=== PATIENT | female | born 1960 | race Caucasian/White ===

== ENCOUNTER 2020-03-22 18:55 | Observation (INO) | payer OTHER, SELFPAY ==
[2020-03-22 19:01] VITALS: BP 174/86; PULSE 75; RESP 18; TEMP 36.6; O2SAT 99; BMI 27.4
--- NOTE | 2020-03-22 19:04 | ECG_ITS ---
Measurements Intervals [place] Rate: 68 P: 78 RI: 196 QRS: 37 QRSD: 104 T: 47 QT: 393 QTc: 418 SINUS RHYTHM WITH SINUS ARRHYTHMIA No previous ECG available for comparison Electronically Signed On 03-23-2020 14:17:13 CDT by Kristyn Burnette M.D. [id number]
--- NOTE | 2020-03-22 19:04 | XR_ITS ---
WS: [id number] XR chest 1V portable [id number] REASON FOR EXAM: cough FINDINGS: A prominent hiatal hernia is seen. The heart is not grossly enlarged. There is arteriosclerotic changes in the arch of the aorta. There is no active pneumonia, pleural effusion, pulmonary edema, The hilum is and apices normal. No osseous abnormalities. Scattered calcified granulomas are noted. XR/XR chest 1V portable [id number] IMPRESSION: Hiatal hernia Granulomatous changes
[2020-03-22] MEDS: aspirin 325 mg Tablet PO (19:16)
[2020-03-22 19:25] LABS: Basophils % 0.4 %; Eosinophils # 0.2 10^3/uL (0.0-0.8); Eosinophils % 3.5 %; Hematocrit 22.4 % (37.0-47.0); Lymphocytes # 1.3 10^3/uL (0.8-4.8); Lymphocytes % 24.9 %; Mean Corpuscular HGB Conc 28.1 g/dL (30.0-36.0); Mean Corpuscular Hemoglobin 22.3 pg (28.0-34.0); Mean Corpuscular Volume 79.2 fL (81-99); Mean Platelet Volume 9.2 fL (7.4-10.4); Monocytes # 0.4 10^3/uL (0.2-0.9); Monocytes % 7.2 %; Neutrophils # 3.4 10^3/uL (1.8-7.7); Neutrophils % 63.6 %; Nucleated Red Blood Cells % 0 %; Platelet Count 307 10^3/cmm (130-400); Red Blood Count 2.83 10^6/uL (4.1-5.3); Red Cell Distribution Width 14.1 % (12.1-15.1); White Blood Count 5.4 10^3/uL (4.0-10.0)
[2020-03-22] MEDS: sodium chloride 0.9% 1,000 ML 100 ML IV (19:25)
[2020-03-22] MEDS: nitroglycerin 0.4 mg sublingual Tablet SUBLINGUAL (19:25)
[2020-03-22 19:29] LABS: Hemoglobin 6.3 g/dL (11.5-15.3)
[2020-03-22 19:34] LABS: INR 0.92 (0.8-1.2)
[2020-03-22 19:42] LABS: Troponin(5th) Baseline 7 ng/mL (0-10)
[2020-03-22 19:50] LABS: Alanine Aminotransferase 15 U/L (0-33); Albumin Level 4.6 g/dL (3.5-5.2); Alkaline Phosphatase 74 IU/L (35-105); Aspartate Amino Transferase 18 U/L (0-32); Blood Urea Nitrogen 18 mg/dL (8-23); Calcium 9.7 mg/dL (8.5-10.5); Carbon Dioxide 27 mmol/L (22-29); Chloride 100 mmol/L (98-107); Globulin 2.6 g/dL (1.3-4.6); Glomerular Filtration Rate 50.5 mL/min (90-130); Glucose 108 mg/dL (65-115); Lipase 35 U/L (13-60); Magnesium 2.3 mg/dL (1.7-2.3); NT Pro B Type Natriuretic Pept 324 pg/mL (0-125); Osmolality Calculated 283 mOsm/kg (285-295); Sodium 138 mmol/L (136-145); Total Bilirubin 0.2 mg/dL (0.15-1.2); Total Protein 7.2 g/dL (6.6-8.7)
--- NOTE | 2020-03-22 19:52 | W.ED.CHESTPA ---
HPI - Chest Pain General: Chief Complaint: Chest Pain Stated Complaint: CP Time Seen by Provider: 03/22/20 19:03 History of Present Illness: HPI narrative: Jaimie is a nice 59-year-old female Associated symptoms: Reports dyspnea; Deny abdominal pain, diaphoresis, fever(s), nausea, palpitations, syncope or vomiting Review of Systems General: Reports: other (negative unless marked) Const: Denies: fever, chills, body aches, fatigue, malaise or diaphoresis Eyes: Denies: change in vision or blurry vision ENMT: Denies: throat pain, painful swallowing, hoarseness, ear pain, ear discharge, Change in hearing or nasal discharge Card: Reports: chest pain; Denies: palpitations, irregular heart rhythm, syncope, pre-syncope, shortness of breath on exertion or shortness of breath when lying down Resp: Reports: shortness of breath; Denies: productive cough, non-productive cough, wheezing, coughing up blood or chest congestion GI: Denies: abdominal pain, nausea, vomiting, vomiting blood, coffee grounds in vomit, diarrhea, constipation, cramping, blood in stool or black tarry stool : Denies: flank pain, painful urination, urinary frequency, urinary urgency, decreased urine ouput, urinary incontinence or blood in urine Musc: Denies: neck pain, back pain, extremity pain, extremity swelling, joint pain, joint swelling, joint warmth or joint stiffness Skin/Breast: Denies: rash, skin tenderness or yellow skin Neuro: Denies: headache, numbness in extremities, weakness in extremities, changes in sensation, lack of coordination, difficulty walking, dizziness, vertigo or confusion Endo: Denies: excessive thirst, tired all the time, cold intolerance, excessive sweating, flushing or hot flashes Joaquín/Lymph: Denies: easy bruising, easy bleeding, petechiae or enlarged lymph nodes All/Imm: Denies: hives, throat swelling, tongue swelling, facial swelling or acute wheezing PFS ED PFSH: Medical History Abnormal stress test Done in 2009 small area of persistent decreased tracer uptake in apical inferior wall region surgical scarring versus attenuation artifact EF 76% no wall motion abnormality GERD (gastroesophageal reflux disease) Hypertension Right ovarian cyst Surgical History History of salpingo-oophorectomy Right-sided Social History Smoking and tobacco status: never smoked Physical Exam Const: COMMON NORMALS: no apparent distress, oriented x3, no limitations, healthy appearing and well nourished EXAM LIMITATIONS: no altered mental status GENERAL APPEARANCE: cooperative, well kempt and well developed ORIENTATION/CONSCIOUSNESS: Yes awake HENMT: COMMON NORMALS: normocephalic, head/scalp atraumatic, hearing grossly normal bilaterally, external ears normal, EAC's normal, external nose normal and moist oral mucous membranes HEAD & SCALP: normal to inspection, normocephalic and atraumatic FACE & SINUS: normal facial exam and face symmetric NOSE: external nose normal and nares normal EXTERNAL EAR: Yes external ears normal EXTERNAL AUDITORY CANAL: EAC's normal MOUTH: oral and palatal mucosa normal and tongue normal Eye: COMMON NORMALS: PERRL, EOMs intact bilaterally, conjunctivae normal and no scleral icterus GENERAL EYE: normal appearance of both eyes and normal light reflex CONJUNCTIVA: Yes conjunctivae normal SCLERA: sclerae normal CORNEA: Yes corneas normal PUPIL: Yes PERRL DIRECT OPHTHALMOSCOPY: Yes normal light reflex Neck/C-Spine: COMMON NORMALS: full ROM, no lymphadenopathy, supple, no meningeal signs and no JVD GENERAL: Yes normal visual inspection and Yes trachea midline CERVICAL SPINE: Yes cervical ROM normal Chest: COMMONS NORMALS: inspection of chest normal and palpation of chest normal Resp: COMMON NORMALS: normal respiratory effort, no retractions, no use of accessory muscles and clear to auscultation bilaterally EFFORT & INSPECTION: Yes able to speak in complete sentences AUSCULTATION: clear to auscultation bilaterally Cardio: COMMON NORMALS: no JVD, regular rate, regular rhythm, S1 normal heart sound, S2 normal heart sound, no gallops, no clicks and no rub JUGULAR VENOUS DISTENTION: no JVD RATE: regular rate RHYTHM: regular rhythm HEART SOUNDS: S1 normal, S2 normal and murmur systolic GI: COMMON NORMALS: soft to palpation, non-tender, no hepatosplenomegaly and no masses INSPECTION: Yes normal to inspection PALPATION: Yes soft and Yes no hepatosplenomegaly : COMMON NORMALS: Yes no CVA tenderness BLADDER/KIDNEY EXAM: Yes no CVA tenderness Back/Pelvis: COMMON NORMALS: no CVA tenderness, thoracic and lumbar spine normal to inspection, no thoracic nor lumbar tenderness and thoraco-lumbar ROM normal Extremity: COMMON NORMALS: normal to inspection, full ROM, normal capillary refill, no joint enlargement, no clubbing, cyanosis or edema and no calf tenderness Neuro: COMMON NORMALS: oriented x3, CN's II-XII intact bilaterally, moves all extremities, no focal motor deficits and no sensory deficits noted MENINGEAL SIGNS: Yes no meningeal signs Psych: COMMON NORMALS: mental status grossly normal, thought process normal, cooperative, affect normal, speech normal and activity/motor behavior normal APPEARANCE: Yes well kempt SPEECH: Yes normal speech THOUGHT PROCESS: normal thought process Skin: COMMON NORMALS: no rashes or lesions noted, skin turgor normal, no jaundice, no petechiae and no mottling GENERAL SKIN EXAM: no rashes or lesions noted and turgor normal Course Vital Signs: Vital signs: Vital Signs Temperature 97.8 F 03/22/20 19: Pulse Rate 75 03/22/20 19: Respiratory Rate 18 03/22/20 19:01 Blood Pressure 174/86 03/22/20 19:01 Pulse Oximetry 99 03/22/20 19:01 MDM - Chest Pain MDM Narrative: Medical decision making narrative: Patient comes in with chest pain and shortness of breath with exertion. Symptoms could be related to her anemia. She is guaiac positive here and admits to taking large amount of Aleve for her arthritis pain. The case was reviewed with Dr. Haskins and he agrees to admission for transfusion and further work-up of her chest pain. Lab Data: Labs: Lab Results 03/22/20 03/22/20 03/22/20 Range/Units 19:19 19:19 19:19 WBC 5.4 (4.0-10.0) 10^3/ uL RBC 2.83 L (4.1-5.3) 10^6/u L Hgb 6.3 L* (11.5-15.3) g/dL Hct 22.4 L (37.0-47.0) % MCV 79.2 L (81-99) fL MCH 22.3 L (28.0-34.0) pg MCHC 28.1 L (30.0-36.0) g/dL RDW 14.1 (12.1-15.1) % Plt Count 307 (130-400) 10^3/c mm MPV 9.2 (7.4-10.4) fL Neut % (Auto) 63.6 % Lymph % (Auto) 24.9 % Taliaferro % (Auto) 7.2 % Eos % (Auto) 3.5 % Baso % (Auto) 0.4 % Neut # (Auto) 3.4 (1.8-7.7) 10^3/u L Lymph # (Auto) 1.3 (0.8-4.8) 10^3/u L Tal[place]ferro # (Auto) 0.4 (0.2-0.9) 10^3/u L Eos # (Auto) 0.2 (0.0-0.8) 10^3/u L Baso # (Auto) 0.0 (0.0-0.1) 10^3/u L Nucleated RBC % (a uto) 0 % Nucleated RBCs # 0.0 /100WBC PT 12.70 (10.5-13.3) SECO NDS INR 0.92 (0.8-1.2) Sodium 138 (136-145) mmol/L Potassium 4.0 (3.5-5.1) mmol/L Chloride 100 (98-107) mmol/L Carbon Dioxide 27 (22-29) mmol/L Anion Gap 15.0 (5-19) BUN 18 (8-23) mg/dL Creatinine 1.1 H (0.5-0.9) mg/dL GFR Calculation 50.5 L (90-130) mL/min Glucose 108 (65-115) mg/dL Calculated Osmolal ity 283 L (285-295) mOsm/k g Calcium 9.7 (8.5-10.5) mg/dL Magnesium 2.3 (1.7-2.3) mg/dL Total Bilirubin 0.2 (0.15-1.2) mg/dL AST 18 (0-32) U/L ALT 15 (0-33) U/L Alkaline Phosphata se 74 (35-105) IU/L Troponin T Baselin e (0-10) ng/mL NT-Pro-B Natriuret Pep 324 H (0-125) pg/mL Total Protein 7.2 (6.6-8.7) g/dL Albumin 4.6 (3.5-5.2) g/dL Globulin 2.6 (1.3-4.6) g/dL Lipase 35 (13-60) U/L /05/06 Range/Units 19:19 WBC (4.0-10.0) 10^3/ uL RBC (4.1-5.3) 10^6/u L Hgb (11.5-15.3) g/dL Hct (37.0-47.0) % MCV (81-99) fL MCH (28.0-34.0) pg MCHC (30.0-36.0) g/dL RDW (12.1-15.1) % Plt Count (130-400) 10^3/c mm MPV (7.4-10.4) fL Neut % (Auto) % Lymph % (Auto) % Taliaferro % (Auto) % Eos % (Auto) % Baso % (Auto) % Neut # (Auto) (1.8-7.7) 10^3/u L Lymph # (Auto) (0.8-4.8) 10^3/u L Taliaferro # (Auto) (0.2-0.9) 10^3/u L Eos # (Auto) (0.0-0.8) 10^3/u L Baso # (Auto) (0.0-0.1) 10^3/u L Nucleated RBC % (a uto) % Nucleated RBCs # /100WBC PT (10.5-13.3) SECO NDS INR (0.8-1.2) Sodium (136-145) mmol/L Potassium (3.5-5.1) mmol/L Chloride (98-107) mmol/L Carbon Dioxide (22-29) mmol/L Anion Gap (5-19) BUN (8-23) mg/dL Creatinine (0.5-0.9) mg/dL GFR Calculation (90-130) mL/min Glucose (65-115) mg/dL Calculated Osmolal ity (285-295) mOsm/k g Calcium (8.5-10.5) mg/dL Magnesium (1.7-2.3) mg/dL Total Bilirubin (0.15-1.2) mg/dL AST (0-32) U/L ALT (0-33) U/L Alkaline Phosphata se (35-105) IU/L Troponin T Baselin e 7 (0-10) ng/mL NT-Pro-B Natriuret Pep (0-125) pg/mL Total Protein (6.6-8.7) g/dL Albumin (3.5-5.2) g/dL Globulin (1.3-4.6) g/dL Lipase (13-60) U/L Imaging Data^: CXR: My impression: No acute cardiopulmonary findings. EKG Data^: EKG 1: Attestation: I personally reviewed and interpreted this EKG as follows: EKG interpretation date: 03/22/20 EKG interpretation time: 19:16 Interpretation: Normal sinus rhythm at 68 beats a minute, normal intervals, no blocks, no acute ST or T wave changes. Discharge Plan Discharge Patient Disposition: Placed in Observation Clinical Impression: Chest pain, Anemia Condition: Stable Prescriptions: No Action amlodipine 5 mg Tablet 5 mg PO DAILY RF: 0 losartan-hydrochlorothiazide 100-25 mg Tablet 1 tab PO DAILY RF: 0 aspirin 81 mg Tablet,Chewable 81 mg PO DAILY RF: 0 labetalol 300 mg Tablet 300 mg PO BID RF: 0 Referrals: John Muse DO [Primary Care Provider] - Coding Level of Care Code ED Lab Clerk for [facility]
--- NOTE | 2020-03-22 19:55 | P.HP_ITS ---
Providers/Chief Complaint Primary Care Provider: John Muse DO Chief Complaint: CP History of Present Illness Jaimie Hernandez is a 59 year old female with no significant past medical history other than hypertension, osteoarthritis came in with chief complaint of chest discomfort. Patient is stating that for last 1 month she has been noticing dark-colored stools, she defines it at black tarry stool, she takes Aleve for her osteoarthritis twice a day on as-needed basis. She was diagnosed with hemorrhoids as well in the past. She denies any history of cancer, peptic ulcer disease, hepatitis. Lately for last 2-3 weeks she has been noticing her energy is down, she is feeling lethargic, she gets palpitations on mild exertion, after taking few steps of stairs she gets tinnitus and palpitations. In last 48 hours she has been experiencing chest discomfort which is substernal, she could pinpoint the area of chest discomfort, not reproducible, no positional changes, no orthopnea, PND, nausea, vomiting or diaphoresis. Her chest pain is intermittent without any relieving or aggravating factors however it associated with shortness of breath which gets worse on exertion. She denies any previous history of MN, CHF, stroke, vascular disease. She is a non-smoker, nonalcoholic. She is moderately active for her age. Diagnostics in the ER revealed hypertension, normal hemodynamics, troponin not significantly high, EKG not suggestive of ischemia or infarction, Patient is chest pain-free FOBT positive, rectal exam revealed fecal occult positive blood No external hemorrhoid Diagnostic work-up revealed anemia hemoglobin 6.3, microcytic, patient was not tachycardic, blood pressure was 170 Review of Systems Const: Reports: chills, body aches, change in appetite, fatigue and malaise; Denies: fever Eyes: Denies: change in vision ENMT: Denies: throat pain Card: Reports: chest pain, palpitations and shortness of breath on exertion; Denies: edema, swelling of feet/ankles, syncope, pre-syncope or shortness of breath when lying down Resp: Denies: shortness of breath or non-productive cough GI: Denies: abdominal pain, nausea or coffee grounds in vomit : Denies: flank pain or difficulty urinating Musc: Reports: muscle cramps and muscle weakness Skin/Breast: Denies: rash, itching or skin pain Neuro: Reports: dizziness; Denies: headache Psych: Denies: anxiety Endo: Denies: excessive urination Joaquín/Lymph: Denies: easy bruising All/Imm: Denies: hives Medications/Allergies Home Medications Medication Instructions Recorded Confirmed Last Taken Type amlodipine 5 mg PO DAILY 03/22/20 03/22/20 03/22/20 History aspirin 81 mg PO DAILY 03/22/20 03/22/20 03/22/20 History labetalol 300 mg PO BID 03/22/20 03/22/20 03/22/20 History losartan-hydrochlorothiazide 1 tab PO DAILY 03/22/20 03/22/20 03/22/20 History Allergies Allergy/AdvReac Type Severity Reaction Status Date / Time No Known Allergies Allergy Verified 03/22/20 19:06 PFSH Acute PFSH: Medical History Abnormal stress test Done in 2008 small area of persistent decreased tracer uptake in apical inferior wall region surgical scarring versus attenuation artifact EF 76% no wall motion abnormality GERD (gastroesophageal reflux disease) Hypertension Right ovarian cyst Surgical History History of salpingo-oophorectomy Right-sided Family History (Updated 03/22/20 @ 21:17 by Seble Haskins MD) Denies family history of Hyperlipidemia Lung disease Hypertension Social History (Updated 03/22/20 @ 21:17 by Seble Haskins MD) Smoking and tobacco status: never smoked Alcohol intake: never Substance/Drug Use: never Household members: spouse Housing: House Vitals/I&O/Wt Last Vital Signs Temp 97.8 F 03/22/20 19:01 Pulse 75 03/22/20 19:01 Resp 18 03/22/20 19:01 BP 174/86 03/22/20 19:01 Pulse Ox 99 03/22/20 19:01 Weight last 48 hrs Weight 72.575 kg Physical Exam Narrative: EXAM NARRATIVE: Head to toe examination EOMI, PERRLA, very pleasant to communicate S1, S2 no tachycardia hemodynamically stable no signs of heart failure Systolic grade 2/6 murmur Complexion pallor Abdominal soft, nontender, nondistended bowel sound present Neurologically nonfocal exam Appropriate mood and affect Skin does not show any skin ischemia gangrene or ulcer Rectal exam revealed FOBT, no external hemorrhoids Pertinent negatives No active heart failure sign No external hemorrhoids reviewed No active hemodynamic instability No active chest pain No radio radial delay Data : 03/22/20 19:19 03/22/20 19:19 A&P Assessment and plan (1) Unstable angina: Status: Acute (2) Microcytic anemia: Status: Acute (3) Melena: Status: Acute Additional A&P Information Unstable angina No previous history of MN, she is a non-smoker, nonalcoholic Medical history of hypertension and osteoarthritis, Would get Lexiscan stress test, currently chest pain-free, troponin not si gnificantly high, ischemia or infarctive changes evident on EKG Echo in the morning, check TSH, check d-dimer (very low risk for PE) This could be cardiac stress related due to anemia Stress test done in 2008 showed artifact versus previous scarring because of permanent defect seen on Lexiscan stress test Subacute microcytic anemia FOBT positive, she takes Aleve for her osteoarthritis no previous history of peptic ulcer disease hepatitis or liver cirrhosis Patient has history of internal hemorrhoids Symptomatic anemia We will give 3 units of PRBC Protonix 40 twice daily Currently hemodynamically stable, patient prefers to have EGD and colonoscopy electively at outpatient basis Iron panel study Acute kidney injury due to dehydration and use of hydrochlorothiazide/ARB combination Anticipating improvement with blood transfusion Hold losartan, hydrochlorothiazide Hypertension: I would continue amlodipine for now hold rest of the antihypertensive to avoid hypotension with underlying anemia Monitor blood pressure overnight No radial radial delay Currently chest pain-free Full code N.p.o. after midnight DVT prophylaxis: SCDs Prefers to have EGD and colonoscopy as outpatient Attestations Medical Necessity Statement*: Anticipating discharge in less than 48 hours currently needs Lexiscan stress test to rule out coronary ischemia, currently needs 3 units of PRBC for subacute anemia due to GI blood loss, hemodynamic stable Time Spent in Patient Care: 50 Coding Level of Care Code Acute Emergency Management Program Specialist for [facility] Fwd Diagnoses Unstable angina I20.0 Microcytic anemia D50.9 Melena K92.1
--- NOTE | 2020-03-22 21:04 | ECG_ITS ---
Measurements Intervals [place] Rate: 64 P: 81 [place]: 212 QRS: 46 QRSD: 101 T: 45 QT: 412 QTc: 427 SINUS RHYTHM WITH FIRST DEGREE AV BLOCK No previous ECG available for comparison Electronically Signed On 03-23-2020 14:18:36 CDT by Kristyn Burnette M.D. [id number]
[2020-03-22 21:09] VITALS: BP 168/75; PULSE 72; RESP 18; O2SAT 98
--- NOTE | 2020-03-22 21:43 | ECG_ITS ---
NAME OF STUDY: LEXISCAN SESTAMIBI STRESS TEST INDICATION: UNSTABLE ANGINA PROCEDURE: At the baseline, the blood pressure was 177/76 mmHg with a heart rate of 71 bpm. The electrocardiogram showed normal sinus rhythm, normal axis with poor anterior R wave progression. The Lexiscan was infused over a period of 20 seconds. A total of 0.4 milligrams of Lexiscan was infused. The stress phase was continued for a total of 5 minutes. Heart rate at the end of the stress phase was 89 bpm with a blood pressure 154/63 mmHg. The EKG at the peak infusion revealed sinus rhythm with no significant ST-T wave changes. Sestamibi was injected 20 seconds after the Lexiscan infusion. Blood pressure at the end of the recovery phase was 144/67 mmHg with a heart rate of 90 beats per minute. CONCLUSION: 1. No significant EKG changes with the LexiScan infusion. 2. No LexiScan induced chest pain or cardiac arrhythmia. 3. Normal blood pressure and heart rate response. 4. Sestamibi/sestamibi perfusion scan pending; see separate report. Electronically Signed On 03-23-2020 12:46:03 CDT by Kristyn Burnette M.D. [id number]
[2020-03-22 22:12] LABS: Urine Appearance Clear (CLEAR); Urine Color Colorless (Yellow); pH Urine 5 (5-7)
[2020-03-22 22:13] LABS: Add Urine Culture? No; Bilirubin Urine Neg (NEGATIVE); Blood Urine Neg (Negative); Glucose Urine UA Norm (Normal); Ketones Urine Negative (Negative); Leukocyte Esterase Urine Negative (Negative); Nitrate Urine Negative (Negative); Protein Urine Neg (Negative); Urobilinogen Urine Norm (Negative)
[2020-03-22 22:24] LABS: Troponin 5 2HR 9.95 ng/mL (0-10); Troponin 5 2HR Delta 2.95 ABS# (0-10)
[2020-03-22 22:33] LABS: Lactate Dehydrogenase 160 U/L (135-214); Thyroid Stimulating Hormone 0.43 uIU/mL (0.27-4.20)
[2020-03-22 22:33] LABS: D Dimer <= 0.27 ug/mIFEU (0-0.59)
[2020-03-22] MEDS: pantoprazole 40 mg SDV 80 MG IVP (22:39)
[2020-03-22 22:44] VITALS: BP 152/71; PULSE 74; RESP 14; TEMP 36.6; O2SAT 97
[2020-03-22 23:01] LABS: Ferritin 6 ng/mL (15-150); Iron 13 ug/dL (37-145); Total Iron Binding Capacity 429 mcg/dl; Unsaturated Iron Binding 416 ug/dL (112-347)
[2020-03-22 23:04] VITALS: BP 148/79; PULSE 71; RESP 14; TEMP 36.4; O2SAT 98
[2020-03-22 23:20] VITALS: BP 145/70; PULSE 67; RESP 18; TEMP 36.5; TEMP 36.6; O2SAT 98
[2020-03-23] VITALS (24 sets, daily range): BP systolic 132–172; BP diastolic 67–84; PULSE 57–90; RESP 14–18; TEMP 36.3–36.8; O2SAT 92–100
--- NOTE | 2020-03-23 01:04 | ECG_ITS ---
Measurements Intervals [place] Rate: 59 P: 38 [place]: 211 QRS: 10 QRSD: 101 T: 24 QT: 407 QTc: 404 SINUS BRADYCARDIA WITH MARKED SINUS ARRHYTHMIA WITH FIRST DEGREE AV BLOCK No previous ECG available for comparison Electronically Signed On 03-23-2020 14:18:27 CDT by Kristyn Burnette M.D. [id number]
[2020-03-23] MEDS: FUROsemide 10 mg/mL SDV 2mL 20 MG IVP (08:46)
[2020-03-23] MEDS: pantoprazole DR 40 mg Tablet PO (08:49)
[2020-03-23] MEDS: regadenoson 0.4 Mg/5 ml Syringe IVP (09:44)
[2020-03-23 11:39] LABS: Basophils % 0.6 %; Eosinophils # 0.2 10^3/uL (0.0-0.8); Eosinophils % 2.3 %; Hematocrit 34.8 % (37.0-47.0); Hemoglobin 10.3 g/dL (11.5-15.3); Lymphocytes # 0.9 10^3/uL (0.8-4.8); Lymphocytes % 13.9 %; Mean Corpuscular HGB Conc 29.6 g/dL (30.0-36.0); Mean Corpuscular Hemoglobin 24.2 pg (28.0-34.0); Mean Corpuscular Volume 81.7 fL (81-99); Mean Platelet Volume 9.8 fL (7.4-10.4); Monocytes # 0.5 10^3/uL (0.2-0.9); Monocytes % 7.4 %; Nucleated Red Blood Cells % 0 %; Platelet Count 308 10^3/cmm (130-400); Red Blood Count 4.26 10^6/uL (4.1-5.3); Red Cell Distribution Width 14.2 % (12.1-15.1); White Blood Count 6.6 10^3/uL (4.0-10.0)
[2020-03-23 11:55] LABS: Anion Gap 16.8 (5-19); Blood Urea Nitrogen 12 mg/dL (8-23); Calcium 10.5 mg/dL (8.5-10.5); Carbon Dioxide 24 mmol/L (22-29); Chloride 101 mmol/L (98-107); Creatinine Clr Calc Pharmacy 82.4053; Glomerular Filtration Rate 85.1 mL/min (90-130); Glucose 109 mg/dL (65-115); Osmolality Calculated 283 mOsm/kg (285-295); Potassium 3.8 mmol/L (3.5-5.1); Sodium 138 mmol/L (136-145)
[2020-03-23] MEDS: losartan 50 mg Tablet 25 MG PO (11:56)
--- NOTE | 2020-03-23 16:25 | PC.NURSE ---
Discharge information given per the physician's orders. Patient verbalized understanding and did not have any further questions.
--- NOTE | 2020-03-23 20:24 | P.DS_ITS ---
Discharge Providers Date of Admission: 03/22/20 20:12 Date of Discharge: March 23, 2020 Attending Provider at Admission: Seble Haskins MD Attending Provider at Discharge: Andrea Bernstein Primary Care Provider: John Muse DO Diagnoses at Discharge Discharge Diagnosis (1) Chest pressure: Status: Acute (2) Microcytic anemia: Status: Acute (3) Melena: Status: Acute Reason for Visit Reason for Visit: Reason For Visit: CP Hospital Course Hospital Course: Very pleasant 59-year-old lady with GERD, HTN, abnormality on stress test back in 2008, on chronic 81 mg aspirin, taking Aleve was admitted for cyst management after presenting with progressive fatigue, chest tightness/discomfort, shortness of breath, especially while walking on stairs, on presentation noted with acute blood loss anemia with hemoglobin of 6.3. She does report an episode of black tarry stool. Noted microcytic anemia on iron studies, with likely chronic bleeding. Her aspirin was held. She appears does not have known coronary artery disease, although in 2008 stress test showed possibly attenuation artifact versus small area of ischemia. She was counseled on discontinuation of NSAIDs. She was started on PPI. She received 3 units PRBC transfusion with hemoglobin increased appropriately up to 10.6. She was feeling significantly better, with all her symptoms resolved. She underwent stress testing which showed areas with decreased tracer uptake, however, most likely due to attenuation artifact. At this time her aspirin is held as this appears to be more primary prophylaxis, and for now she was advised to hold it indefinitely due to GI bleeding. She preferred to undergo additional evaluation on outpatient basis, and will be expected by Dr. Sutherland in clinic on Friday for planning of endoscopic evaluation. Of note she states she has had a colonoscopy 4-5 years ago which was unremarkable. Will request for repeat hemoglobin at that time. Very mild acute kidney injury on presentation resolved. For now her antihypertensives will be continued as is due to blood pressure count elevated in the hospital, and since NSAIDs are now discontinued. Please follow-up renal function as well as her hemoglobin. Physical Exam Const: COMMON NORMALS: no apparent distress and oriented x3 HENMT: COMMON NORMALS: oropharynx normal Neck/C-Spine: COMMON NORMALS: no JVD Resp: COMMON NORMALS: normal respiratory effort and clear to auscultation bilaterally AUSCULTATION: clear to auscultation bilaterally Cardio: COMMON NORMALS: no JVD, regular rhythm, S1 normal heart sound, S2 normal heart sound and no murmurs RHYTHM: regular rhythm HEART SOUNDS: S1 normal and S2 normal GI: COMMON NORMALS: normal to inspection, nondistended, normoactive bowel sounds, soft to palpation and non-tender PALPATION: Yes soft Extremity: COMMON NORMALS: no joint enlargement and no pedal edema Neuro: COMMON NORMALS: oriented x3 and moves all extremities Skin: COMMON NORMALS: no rashes or lesions noted GENERAL SKIN EXAM: no rashes or lesions noted Discharge Data Data Completed and Pending: Completed Studies During Hospitalization Category Date Time Status Sestamibi Stress Test Request Routi ne Exams 03/22/20 21:43 Completed XR chest 1V miller ble [id number] Stat Exams 03/22/20 19:04 Completed NM tresa perf SPECT r/s* [id number] Routin e Nuc Med 03/23/20 21:43 Completed CV echo complete* [id number] Routine Ultrasound 03/23/20 21:43 Completed Labs from last 24 hours 03/23/20 03/23/20 03/23/20 11:17 11:17 01:05 WBC 6.6 RBC 4.26 Hgb 10.3 L D Hct 34.8 L D MCV 81.7 MCH 24.2 L MCHC 29.6 L D RDW 14.2 Plt Count 308 MPV 9.8 Neut % (Auto) 75.0 Lymph % (Auto) 13.9 Dougherty % (Auto) 7.4 Eos % (Auto) 2.3 Baso % (Auto) 0.6 Reticulocyte % (Au to) Neut # (Auto) 5.0 Lymph # (Auto) 0.9 Dougherty # (Auto) 0.5 Eos # (Auto) 0.2 Baso # (Auto) 0.0 Nucleated RBC % (a uto) 0 Nucleated RBCs # 0.0 D-Dimer Sodium 138 Potassium 3.8 Chloride 101 Carbon Dioxide 24 Anion Gap 16.8 BUN 12 Creatinine 0.7 GFR Calculation 85.1 L Glucose 109 Calculated Osmolal ity 283 L Calcium 10.5 Iron TIBC % Saturation Unsat Iron Binding Ferritin Lactate Dehydrogen ase Troponin I 6 Hour 10.20 H Troponin I Hi Sens Del 3.20 Troponin T 120 Min [place] Troponin T TSH Urine Color Urine Appearance Urine pH Ur Specific Gravit y Urine Protein Urine Glucose (UA) Urine Ketones Urine Blood Urine Nitrate Urine Bilirubin Urine Urobilinogen Ur Leukocyte Concetta ase Urine RBC Urine WBC Ur Squamous Epith Cells Ur Transition Epit h Cell Ur Renal Epithelia l Cell Urine Bacteria Blood Type Rho(D) Type Antibody Screen Crossmatch 03/22/20 03/22/20 03/22/20 21:19 21:19 20:53 WBC RBC Hgb Hct MCV MCH MCHC RDW Plt Count MPV Neut % (Auto) Lymph % (Auto) Dougherty % (Auto) Eos % (Auto) Baso % (Auto) Reticulocyte % (Au to) Neut # (Auto) Lymph # (Auto) Dougherty # (Auto) Eos # (Auto) Baso # (Auto) Nucleated RBC % (a uto) Nucleated RBCs # D-Dimer Sodium Potassium Chloride Carbon Dioxide Anion Gap BUN Creatinine GFR Calculation Glucose Calculated Osmolal ity Calcium Iron 13 L TIBC 429 % Saturation 3.0 L Unsat Iron Binding 416 H Ferritin 6 L Lactate Dehydrogen ase 160 Troponin I 6 Hour Troponin I Hi Sens Del Troponin T 120 Min [place] 9.95 Delta Troponin T 2.95 TSH 0.43 Urine Color Colorless Urine Appearance Clear Urine pH 5 Ur Specific Gravit y 1.010 Urine Protein Neg Urine Glucose (UA) Norm Urine Ketones Negative Urine Blood Neg Urine Nitrate Negative Urine Bilirubin Neg Urine Urobilinogen Norm Ur Leukocyte Concetta ase Negative Urine RBC None Urine WBC None Ur Squamous Epith Cells None Ur Transition Epit h Cell None Ur Renal Epithelia l Cell None Urine Bacteria None Blood Type Rho(D) Type Antibody Screen Crossmatch 03/22/20 03/22/20 03/22/20 20:00 19:19 19:19 WBC RBC Hgb Hct MCV MCH MCHC RDW Plt Count MPV Neut % (Auto) Lymph % (Auto) Dougherty % (Auto) Eos % (Auto) Baso % (Auto) Reticulocyte % (Au to) 1.6400 Neut # (Auto) Lymph # (Auto) Dougherty # (Auto) Eos # (Auto) Baso # (Auto) Nucleated RBC % (a uto) Nucleated RBCs # D-Dimer <= 0.27 Sodium Potassium Chloride Carbon Dioxide Anion Gap BUN Creatinine GFR Calculation Glucose Calculated Osmolal ity Calcium Iron TIBC % Saturation Unsat Iron Binding Ferritin Lactate Dehydrogen ase Troponin I 6 Hour Troponin I Hi Sens Del Troponin T 120 Min [place] Troponin T TSH Urine Color Urine Appearance Urine pH Ur Specific Gravit y Urine Protein Urine Glucose (UA) Urine Ketones Urine Blood Urine Nitrate Urine Bilirubin Urine Urobilinogen Ur Leukocyte Concetta ase Urine RBC Urine WBC Ur Squamous Epith Cells Ur Transition Epit h Cell Ur Renal Epithelia l Cell Urine Bacteria Blood Type A Positive Rho(D) Type Positive Antibody Screen Negative Crossmatch See Detail Vitals: Last Vital Signs Temp 98.3 F 03/23/20 16:00 Pulse 72 03/23/20 16:00 Resp 18 03/23/20 16:00 BP 158/76 03/23/20 16:00 Pulse Ox 97 03/23/20 16:00 Discharge Plan Discharge Patient Disposition: Home, Self-Care Condition: Stable Prescriptions: New pantoprazole 40 mg Tablet,Delayed Release (Dr/Ec) 40 mg PO BID Qty: 60 RF: 1 ferrous sulfate 325 mg (65 mg iron) tablet,delayed release (DR/EC) 325 mg PO EVERY OTHER DAY Qty: 14 RF: 0 Continued amlodipine 5 mg Tablet 5 mg PO DAILY RF: 0 losartan-hydrochlorothiazide 100-25 mg Tablet 1 tab PO DAILY RF: 0 labetalol 300 mg Tablet 300 mg PO BID RF: 0 Held aspirin 81 mg Tablet,Chewable 81 mg PO DAILY RF: 0 Hold Instructions: Resume on 04/06/20. Discharge Orders: Discharge Order (Routine); Ordered 03/23/20 Ordered By: Andrea Bernstein Other Ambulatory Orders: Basic Metabolic Panel (Routine) Timeframe: 3 Days Facility: [facility] - Location: Lab - Main Lab Ordered By: Andrea Bernstein Complete Blood Count w/Auto (Routine) Timeframe: [id number] Location: Determined by Patient Ordered By: Andrea Bernstein Referrals: Jaron Sutherland MD [Physician] - 03/27/20 9:15 am (GI bleeding) John Muse DO [Primary Care Provider] - 03/28/20 9:45 am (Upper GI bleed with preference for outpatient evaluation, symptomatic anemia, chest pain) Discharge Diet: Soft Mechanical Discharge Activity: Increase activity as tolerated and Limit activity as instructed Patient Instructions: Iron Supplements (By mouth), Pantoprazole (By mouth), Gastrointestinal Bleeding (DC), Chest Pain Stoplight Activity Restrictions/Additional Instructions: Please discontinue using Aleve as it may cause stomach inflammation, ulcer, bleeding. If you experience worsening of dark stools, fresh blood in stool, severe tiredness, chest pain or pressure, shortness of breath, fainting or other abnormal symptoms, please seek medical attention without delay. Until you are evaluated, avoid overexertion, dehydration. For now your aspirin is held, please discuss with your primary care doctor and surgeon when it is safe to resume. He had a very mild acute kidney injury on presentation as well. Renal function will be rechecked. Please avoid any NSAIDs in the future. Discharge Date/Time: 03/23/20 16:57 Discharge Attestations Time Spent in Discharge Care*: greater than 30 min Quality Metrics Clinical Quality Measures During this hospital stay, did patient experience: None Coding Level of Care Code Acute Cashier Checker for Chg Fwd Diagnoses Chest pressure R07.89 Microcytic anemia D50.9 Melena K92.1
--- NOTE | 2020-03-23 21:43 | USCV_ITS ---
Jaimie Hernandez Age: 59 Gender: F : 1960 Exam Date: 03/23/2020 06:46 Ordering Phys: Seble Haskins MD Technologist: Eri Klein Exam Location: [facility] – [place], [place] Indication: CHEST PAIN BP: 154 / 75 HR: 96 Rhythm: Sinus Technical Quality: Good MEASUREMENTS (Male / Female) Normal Values 2D ECHO LV Diastolic Diameter PLAX 5.7 cm 4.2 - 5.9 / 3.9 - 5.3 cm LV Systolic Diameter PLAX 3.9 cm IVS Diastolic Thickness 0.9 cm 0.6 - 1.0 / 0.6 - 0.9 cm IVS Systolic Thickness 1.3 cm LVPW Diastolic Thickness 1.0 cm 0.6 - 1.0 / 0.6 - 0.9 cm LVPW Systolic Thickness 1.3 cm LVOT Diameter 2.0 cm LV Ejection Fraction 2D Teich 58.6 % LV Ejection Fraction MOD 2C 65.3 % LV Ejection Fraction 2C AL 67.7 % LA Diameter 4.9 cm LA Width 4.7 cm LA Height 6.0 cm RA Width 3.3 cm RA Height 5.7 cm Aorta at Sinotubular Diameter 2.9 cm M-MODE LV Diastolic Diameter MM 6.3 cm 4.2 - 5.9 / 3.9 - 5.3 cm LV Systolic Diameter MM 4.4 cm LV Ejection Fraction MM Teich 57.0 % IVS Diastolic Thickness MM 0.7 cm 0.6 - 1.0 / 0.6 - 0.9 cm IVS Systolic Thickness MM 1.1 cm LVPW Diastolic Thickness MM 0.8 cm 0.6 - 1.0 / 0.6 - 0.9 cm LVPW Systolic Thickness MM 1.3 cm Aortic Annulus Diameter 2.1 cm LA Ao Ratio MM 2.4 MV E Point Septal Separation 0.1 cm DOPPLER AV Peak Velocity 186.0 cm/s LVOT Peak Velocity 92.0 cm/s AV Area Cont Eq vti 1.7 cm squared AV Area Cont Eq pk 1.6 cm squared MV Area PHT 4.6 cm squared Mitral E to A Ratio 1.3 MV E' Velocity 12.0 cm/s Mitral E to MV E' Ratio 12.9 Mitral E to LV E' Lateral Ratio 14.0 Mitral E to LV E' Septal Ratio 12.1 TV Peak E Velocity 87.0 cm/s Right Atrial Pressure 3.0 mmHg PV Peak Velocity 111.0 cm/s RV Acceleration Time 0.1 s RV Ejection Time 0.4 s RV AcT/ET 0.3 FINDINGS Left Ventricle Normal left ventricular size, systolic function and wall thickness, with no regional wall motion abnormalities. Left ventricular ejection fraction is estimated at 65 %. Normal diastolic function. Right Ventricle Normal right ventricular size and systolic function. Right ventricular systolic pressure 41 mmHg. Right Atrium Normal right atrial size. Right atrial pressure estimated at 3 mmHg. Left Atrium Mildly increased left atrial size. Mitral Valve Structurally normal mitral valve. No mitral valve stenosis. Mild mitral valve regurgitation. Aortic Valve Structurally normal trileaflet aortic valve. No aortic valve stenosis. No aortic valve regurgitation. Tricuspid Valve Structurally normal tricuspid valve. No tricuspid valve stenosis. Mild to moderate tricuspid valve regurgitation. Pulmonic Valve Structurally normal pulmonic valve. No pulmonary valve stenosis. Trace pulmonary valve regurgitation. Pericardium No pericardial effusion. Normal-sized inferior vena cava. Aorta Normal size aortic root and proximal ascending aorta. CONCLUSIONS 1. Normal left ventricular size, systolic function and wall thickness, with no regional wall motion abnormalities. Left ventricular ejection fraction is estimated at 65 %. Normal diastolic function. 2. Normal right ventricular size and systolic function. 3. Mildly increased left atrial size. 4. Mild to moderate tricuspid valve regurgitation. 5. No prior similar studies to compare. Kristyn Burnette MD (Electronically Signed) Final Date: 23 Mar 2020 13:02 S
--- NOTE | 2020-03-23 21:43 | NMCV_ITS ---
NM tresa perf SPECT r/s* [id number] Jaimie Hernandez Age: 59 Gender: F : 1960 Exam Date: 03/23/2020 21:43 Ordering Phys: Seble Haskins MD Technologist: VILMA Leo Exam Location: [facility] Indications: CHEST PAIN STRESS TEST [facility] IMAGE PROTOCOL Rest/Stress 1 Lexiscan Day Radiopharmaceutical Dose (mCi) Administration Site Administered by Rest: Tc-99m 10.4 IV VILMA Leo Sestamibi Stress:Tc-99m 32.5 IV VILMA Kimball Sestamibi Rest: 23-Mar-2020 60 Discovery 630 Stress: 23-Mar-2020 30 Discovery 630 0.4mg Lexiscan. Images obtained in supine and prone position. SPECT RESULTS Technical Quality: Excellent Raw Data Analysis: Normal Image Corrections: No attenuation or motion correction applied Summed Stress Score: 11 Summed Rest Score: 11 Summed Difference Score: 2 PERFUSION FINDINGS Medium sized perfusion abnormality of mild severity of mid to apical inferior, inferolateral and apical schwartz on rest images with some reversibility in basal to mid inferior schwartz on supine stress images. There is significant improvement in tracer uptake on basal to mid inferior and inferolateral schwartz on prone stress images. This is likely suggestive of attenuation artifact. FUNCTIONAL RESULTS (calculated via Gated SPECT) Stress Image LV EF (%): 67 Stress EDV (mL):110 TID: 0.95 Stress ESV (mL):36 FUNCTIONAL FINDINGS: The left ventricle is normal in size. Transient Ischemia Dilatation of 0.95. There is normal left ventricular systolic function. The left ventricular ejection fraction is normal with a value of 67%. There is normal left ventricular wall thickening. Normal end-diastolic and end-systolic volumes IMPRESSIONS 1. Medium sized perfusion abnormality of mid to apical inferior, inferolateral and apical schwartz with significantly improvement in tracer uptake on inferior and inferolateral schwartz on prone stress images. This is suggestive of attenuation artifact. 2. Very small sized fixed perfusion abnormality of apical inferior wall. This very likely represents attenuation artifact. 3. Overall left ventricular systolic function is normal without regional wall motion abnormalities. 4. The left ventricular ejection fraction is normal with a value of 67%. 5. No coronary ischemia based on the study. Kristyn Burnette MD (Electronically Signed) Final Date: 23 Mar 2020 13:36 S
== END 2020-03-23 16:57 | disposition home or self-care (01) ==
LOC: ER 20:36 → MEDSURG 20:39
PROVIDERS: Admitting Provider Internal Medicine; Emergency Provider Emergency Medicine; PCP Internal Medicine; Visit Provider Internal Medicine
DX: I20.0 Unstable angina (principal); D50.9 Iron deficiency anemia, unspecified; K92.1 Melena; R07.89 Other chest pain; I10 Essential (primary) hypertension; N17.9 Acute kidney failure, unspecified; M19.90 Unspecified osteoarthritis, unspecified site; Z79.82 Long term (current) use of aspirin; K21.9 Gastro-esophageal reflux disease without esophagitis; Z82.49 Family history of ischemic heart disease and other diseases of the circulatory system
CPT/HCPCS: 12345; 36415; 36430; 71045; 78452; 80048; 80053; 81001; 82728; 83540; 83550; 83615; 83690; 83735; 83880; 84443; 84484; 85025; 85045; 85378; 85610; 86850; 86900; 86920; 93005; 93017; 93306; 96360; 96361; 96375; 99283; 99285; A9500; C9113; G0378; J1940; J2785; J7030; P9016

== ENCOUNTER 2020-03-28 09:57 | Day surgery (SDC) | payer OTHER, SELFPAY ==
[2020-03-27 13:20] VITALS: BMI 27.6
[2020-03-28 10:18] VITALS: BP 158/85; PULSE 71; RESP 18; TEMP 36.7; O2SAT 96
--- NOTE | 2020-03-28 10:20 | W.PM.OPSUD ---
Surgery/Procedure H&P Update DATE OF PROCEDURE: March 28, 2020 DATE H&P PERFORMED: 03/27/20 H&P UPDATE INFORMATION: I have reviewed H&P completed within last 30 days, I have examined patient prior to procedure and No changes to prior documentation PREOP DIAGNOSIS: Anemia associated with melena PRIMARY INDICATION FOR PROCEDURE: The same PLANNED PROCEDURE: Operation Date: 03/28/20 11:20 Proposed Procedures p EGD 29475 D64.9(Not Applicable) - Jaron Sutherland MD
[2020-03-28] MEDS: sodium chloride 0.9% 1,000 ML 30 ML IV (10:33)
--- NOTE | 2020-03-28 10:47 | ANES.PREANE2 ---
Pre-Anesthetic Assessment Pre-Anesthetic Assessment: Height/Weight: Height 1.63 m Weight 73.028 kg Temp Pulse Resp BP Pulse Ox 98.0 F 71 18 158/85 96 03/28/20 10:18 03/28/20 10:18 03/28/20 10:18 03/28/20 10:18 03/28/20 10:18 Preop Diagnosis: Anemia associated with melena Proposed Procedure: Operation Date: 03/28/20 11:20 Proposed Procedures p EGD 28871 D64.9(Not Applicable) - Jaron Sutherland MD Last intake: Intake Last Liquid Date 03/27/20 Last Liquid Time 22:30 Last Solid Date 03/27/20 Last Solid Time 22:30 Social: Social History: No alcohol and No tobacco Exam: Pre-Anes Outpt Exam: alert, oriented x 3, clear to auscultation bilaterally and regular rate & rhythm Airway: Submandibular: WNL Cervical ROM: WNL MP: 1 Dentition: Other (teeth ok) History/ROS: No significant history except as noted Pulmonary: Pulmonary: None reported CV/HEM: CV/HEM: HTN : : None reported Hepatic: Hepatic: None reported GI: GI: GERD Comments: GI bleed Metabolic: Metabolic: None reported Musc/skel: Musc/skel: None reported Neuropsych: Neuropsych: None reported Anesthetic Plan: ASA status: 3 Anesthesia: Anesthesia Evaluation and MAC Risk of > 500 ml blood loss (7ml/kg in children): No Meds/Allergies Current Medications: Current Medications Generic Name Dose Route Start Last Admin Trade Name Freq PRN Reason Stop Dose Admin Sodium Chloride 1,000 mls @ 30 ml s/hr 03/28/20 10:15 03/28/20 10:33 Sodium Chloride 0.9% IV 30 mls/hr .Q24H FRANCISCA Administration PFSH Anesthesia PFSH: Medical History Abnormal stress test Done in 2008 small area of persistent decreased tracer uptake in apical inferior wall region surgical scarring versus attenuation artifact EF 76% no wall motion abnormality GERD (gastroesophageal reflux disease) Hypertension Right ovarian cyst Surgical History History of colonoscopy (~2014) History of salpingo-oophorectomy Right-sided Family History Denies family history of Hyperlipidemia Anesthesia complication Bleeding disorder Lung disease Hypertension Social History Smoking and tobacco status: never smoked Alcohol intake: never Household members: spouse Housing: House Data Anesthesia Cardiac Studies: No Data to Display
--- NOTE | 2020-03-28 10:51 | P.ANESASSM_ITS ---
Pre-Anesthetic Assessment Pre-Anesthetic Assessment: Height/Weight: Height 1.63 m Weight 73.028 kg Temp Pulse Resp BP Pulse Ox 98.0 F 71 18 158/85 96 03/28/20 10:18 03/28/20 10:18 03/28/20 10:18 03/28/20 10:18 03/28/20 10:18 Preop Diagnosis: Anemia associated with melena Proposed Procedure: Operation Date: 03/28/20 11:20 Proposed Procedures p EGD 51330 D64.9(Not Applicable) - Jaron Sutherland MD Familial anesthetic complications: denies Was Beta Surekha taken within 24 hours: Yes Last intake: Intake Last Liquid Date 03/27/20 Last Liquid Time 22:30 Last Solid Date 03/27/20 Last Solid Time 22:30 Last Intake: 10:51 Social: Social History: No alcohol and No tobacco Exam: Pre-Anes Outpt Exam: alert, oriented x 3 and clear to auscultation b ilaterally Airway: Submandibular: WNL Cervical ROM: WNL MP: 2 History/ROS: No significant history except as noted Pulmonary: Pulmonary: None reported CV/HEM: CV/HEM: HTN : : None reported Hepatic: Hepatic: None reported GI: GI: GERD Metabolic: Metabolic: None reported Musc/skel: Musc/skel: OA/DJD Neuropsych: Neuropsych: None reported Anesthetic Plan: ASA status: 2 Anesthesia: Anesthesia Evaluation and MAC Risk of > 500 ml blood loss (7ml/kg in children): No Meds/Allergies Current Medications: Current Medications Generic Name Dose Route Start Last Admin Trade Name Freq PRN Reason Stop Dose Admin Sodium Chloride 1,000 mls @ 30 ml s/hr 03/28/20 10:15 03/28/20 10:33 Sodium Chloride 0.9% IV 30 mls/hr .Q24H FRANCISCA Administration PFSH Anesthesia PFSH: Medical History Abnormal stress test Done in 2008 small area of persistent decreased tracer uptake in apical inferior wall region surgical scarring versus attenuation artifact EF 76% no wall motion abnormality GERD (gastroesophageal reflux disease) Hypertension Right ovarian cyst Surgical History History of colonoscopy (~2014) History of salpingo-oophorectomy Right-sided Family History Denies family history of Hyperlipidemia Anesthesia complication Bleeding disorder Lung disease Hypertension Social History Smoking and tobacco status: never smoked Alcohol intake: never Household members: spouse Housing: House Data Anesthesia Cardiac Studies: No Data to Display
[2020-03-28 11:19] VITALS: BP 127/68; PULSE 68; RESP 18; TEMP 36.4; O2SAT 98
[2020-03-28 11:35] VITALS: BP 127/68; PULSE 54; RESP 18; O2SAT 100
[2020-03-28 11:43] LABS: Hematocrit 32.6 % (37.0-47.0); Hemoglobin 9.6 g/dL (11.5-15.3); Mean Corpuscular HGB Conc 29.4 g/dL (30.0-36.0); Mean Corpuscular Hemoglobin 24.2 pg (28.0-34.0); Mean Corpuscular Volume 82.3 fL (81-99); Mean Platelet Volume 10.2 fL (7.4-10.4); Platelet Count 268 10^3/cmm (130-400); Red Blood Count 3.96 10^6/uL (4.1-5.3); Red Cell Distribution Width 16.1 % (12.1-15.1); White Blood Count 5.6 10^3/uL (4.0-10.0)
[2020-03-28 12:05] LABS: Anion Gap 14.4 (5-19); Blood Urea Nitrogen 12 mg/dL (8-23); Calcium 9.5 mg/dL (8.5-10.5); Carbon Dioxide 28 mmol/L (22-29); Chloride 101 mmol/L (98-107); Glomerular Filtration Rate 85.1 mL/min (90-130); Glucose 108 mg/dL (65-115); Osmolality Calculated 287 mOsm/kg (285-295); Potassium 3.4 mmol/L (3.5-5.1); Sodium 140 mmol/L (136-145)
[2020-03-28 12:28] LABS: Absolute Eosinophils 0.2 10^3/cmm (0.0-0.7); Absolute Segmented Neutrophil 3.9 10/cmm (1.6-7.1); Band Neutrophils Absolute 0.1 10^3/cmm (0.0-1.2); Eosinophils 5 %; Hypochromasia 1+; Lymphocytes 17 %; Monocytes Absolute 0.3 10^3/cmm (0.1-0.6); Platelet Estimate Normal (Normal); Segmented Neutrophils 70 %; Total Cells Counted 100 (0-100)
== END 2020-03-28 11:45 | disposition home or self-care (01) ==
PROVIDERS: PCP Internal Medicine; Visit Provider Surgery
PROC: 0DJ08ZZ Inspection of Upper Intestinal Tract, Via Natural or Artificial Opening Endoscopic (ICD-10-PCS; CPT 43235; principal; 2020-03-28 11:15)
DX: D64.9 Anemia, unspecified (principal); K92.1 Melena; Z79.82 Long term (current) use of aspirin; K21.9 Gastro-esophageal reflux disease without esophagitis; I10 Essential (primary) hypertension; K31.7 Polyp of stomach and duodenum; K44.9 Diaphragmatic hernia without obstruction or gangrene; K29.70 Gastritis, unspecified, without bleeding; M19.90 Unspecified osteoarthritis, unspecified site
CPT/HCPCS: 43239; 12345; 80048; 85007; 85027; 88305; J2001; J2704; J7030

== ENCOUNTER 2020-04-26 06:51 | Day surgery (SDC) | payer OTHER, SELFPAY ==
[2020-04-24 12:58] VITALS: BMI 27.4
[2020-04-26 07:12] VITALS: BP 140/91; PULSE 71; RESP 18; TEMP 36.2; O2SAT 98
[2020-04-26] MEDS: sodium chloride 0.9% 1,000 ML 30 ML IV (07:15)
--- NOTE | 2020-04-26 07:29 | P.ANESASSM_ITS ---
Pre-Anesthetic Assessment Pre-Anesthetic Assessment: Height/Weight: Height 1.63 m Weight 72.575 kg Temp Pulse Resp BP Pulse Ox 97.1 F L 71 18 140/91 98 04/26/20 07:12 04/26/20 07:12 04/26/20 07:12 04/26/20 07:12 04/26/20 07:12 Preop Diagnosis: Anemia associated with melena Proposed Procedure: Operation Date: 04/26/20 07:50 Proposed Procedures p Colonoscopy 66084 D64.9(Not Applicable) - Jaron Sutherland MD Familial anesthetic complications: None Was Beta Surekha taken within 24 ho urs: Yes Last intake: Intake Last Liquid Date 04/25/20 Last Liquid Time 18:00 Last Solid Date 04/25/20 Last Solid Time 10:00 Social: Social History: No alcohol and No tobacco Exam: Pre-Anes Outpt Exam: alert, oriented x 3, clear to auscultation bilaterally and regular rate & rhythm Airway: Cervical ROM: WNL MP: 2 Dentition: Full Pulmonary: Pulmonary: None reported CV/HEM: CV/HEM: HTN : : None reported Hepatic: Hepatic: None reported GI: GI: GERD Metabolic: Metabolic: None reported Musc/skel: Musc/skel: None reported Neuropsych: Neuropsych: None reported Anesthetic Plan: ASA status: 2 Anesthesia: MAC Risk of > 500 ml blood loss (7ml/kg in children): No PFSH Anesthesia PFSH: Medical History (Updated 04/07/20 @ 09:31 by Jaron Sutherland MD) Abnormal stress test Done in 2008 small area of persistent decreased tracer uptake in apical inferior wall region surgical scarring versus attenuation artifact EF 76% no wall motion abnormality GERD (gastroesophageal reflux disease) Hypertension Right ovarian cyst Surgical History History of colonoscopy (~2014) History of salpingo-oophorectomy Right-sided Family History Denies family history of Hyperlipidemia Anesthesia complication Bleeding disorder Lung disease Hypertension Social History Smoking and tobacco status: never smoked Alcohol intake: never Household members: spouse Housing: House Data Anesthesia Cardiac Studies: No Data to Display
--- NOTE | 2020-04-26 07:52 | W.PM.OPSUD ---
Surgery/Procedure H&P Update DATE OF PROCEDURE: April 26, 2020 DATE H&P PERFORMED: 03/07/20 H&P UPDATE INFORMATION: I have reviewed H&P completed within last 30 days, I have examined patient prior to procedure and No changes to prior documentation PREOP DIAGNOSIS: Anemia associated with melena PRIMARY INDICATION FOR PROCEDURE: The same PLANNED PROCEDURE: Operation Date: 04/26/20 07:50 Proposed Procedures p Colonoscopy 49965 D64.9(Not Applicable) - Jaron Sutherland MD
--- NOTE | 2020-04-26 08:13 | ANE.PACU2 ---
Inpatient post-anesthesia follow up: Airway intact: Yes Vital signs: Temperature 97.1 F Pulse Rate 71 Respiratory Rate 18 Blood Pressure 140/91 Pulse Oximetry 98 Oxygen Delivery Me thod Room Air Oxygen Flow Rate Fraction of Inspir ed Oxygen Hydration adequate: Yes Nausea and vomiting: No Pain level: 1 Mental status: Baseline
[2020-04-26 08:19] VITALS: BP 132/69; PULSE 66; RESP 16; TEMP 36.4; O2SAT 100
[2020-04-26 08:40] VITALS: BP 136/77; PULSE 58; RESP 16; O2SAT 99
== END 2020-04-26 08:47 | disposition home or self-care (01) ==
PROVIDERS: PCP Internal Medicine; Visit Provider Surgery
PROC: 0DJD8ZZ Inspection of Lower Intestinal Tract, Via Natural or Artificial Opening Endoscopic (ICD-10-PCS; CPT 45378; principal; 2020-04-26 07:50)
DX: D64.9 Anemia, unspecified (principal); K92.1 Melena; K57.30 Diverticulosis of large intestine without perforation or abscess without bleeding; I10 Essential (primary) hypertension; K21.9 Gastro-esophageal reflux disease without esophagitis; Z79.82 Long term (current) use of aspirin
CPT/HCPCS: 12345; 45378; J2704; J7030

== ENCOUNTER 2020-08-14 06:48 | Outpatient (CLI) | payer OTHER, SELFPAY ==
--- NOTE | 2020-08-14 | USCV_ITS ---
Jaimie Hernandez Age: 60 Gender: F : 1960 Exam Date: 08/14/2020 07:09 Ordering Phys: John Muse DO Technologist: Malathi Mayo Exam Location: [facility] [place] Indication: MURMUR BP: 154 / 69 HR: 64 Rhythm: Sinus Technical Quality: Adequate MEASUREMENTS (Male / Female) Normal Values 2D ECHO LV Diastolic Diameter PLAX 5.6 cm 4.2 - 5.9 / 3.9 - 5.3 cm LV Systolic Diameter PLAX 3.8 cm LV Chamber Size 3.8 cm IVS Diastolic Thickness 1.1 cm 0.6 - 1.0 / 0.6 - 0.9 cm IVS Systolic Thickness 1.3 cm LVPW Diastolic Thickness 1.6 cm 0.6 - 1.0 / 0.6 - 0.9 cm LVPW Systolic Thickness 2.1 cm RV Chamber Size 2.9 cm LVOT Diameter 2.0 cm LV Ejection Fraction 2D Teich 59.8 % LV Ejection Fraction MOD 2C 59.1 % LV Ejection Fraction 2C AL 59.3 % LA Diameter 5.5 cm LA Width 4.4 cm LA Height 6.0 cm RA Width 3.5 cm RA Height 4.8 cm Aorta at Sinotubular Diameter 2.3 cm M-MODE LV Diastolic Diameter MM 5.4 cm 4.2 - 5.9 / 3.9 - 5.3 cm LV Systolic Diameter MM 3.0 cm LV Ejection Fraction MM Teich 76.3 % IVS Diastolic Thickness MM 0.8 cm 0.6 - 1.0 / 0.6 - 0.9 cm IVS Systolic Thickness MM 1.0 cm LVPW Diastolic Thickness MM 1.2 cm 0.6 - 1.0 / 0.6 - 0.9 cm LVPW Systolic Thickness MM 1.4 cm Aortic Annulus Diameter 2.6 cm LA Ao Ratio MM 2.1 MV E Point Septal Separation 0.6 cm DOPPLER AV Peak Velocity 177.0 cm/s LVOT Peak Velocity 122.0 cm/s AV Area Cont Eq vti 2.5 cm squared AV Area Cont Eq pk 2.3 cm squared MV Area PHT 4.0 cm squared Mitral E to A Ratio 1.2 MV E' Velocity 9.0 cm/s Mitral E to MV E' Ratio 12.1 Mitral E to LV E' Lateral Ratio 12.3 Mitral E to LV E' Septal Ratio 12.0 TR Peak Velocity 241.0 cm/s TR Peak Gradient 23.3 mmHg TV Peak E Velocity 67.0 cm/s Right Atrial Pressure 3.0 mmHg Pulmonary Artery Systolic Pressu 26.2 mmHg PV Peak Velocity 73.0 cm/s RV Acceleration Time 0.1 s RV Ejection Time 0.4 s RV AcT/ET 0.4 FINDINGS Left Ventricle Normal left ventricular size, systolic function and wall thickness, with no regional wall motion abnormalities. LVEF is 55 to 60%. Normal left ventricular wall thickness. Normal diastolic filling pattern. Right Ventricle The right ventricle is normal in size and function. Right Atrium The right atrium is normal in size. Left Atrium The left atrium is mildly enlarged. Mitral Valve Structurally normal mitral valve without significant stenosis or prolapse. There is mild mitral regurgitation. Aortic Valve Structurally normal aortic valve without significant sclerosis or stenosis. There is no aortic regurgitation. Tricuspid Valve Structurally normal tricuspid valve without significant stenosis or regurgitation. Insufficient TR jet to calculate RVSP. Pulmonic Valve Structurally normal pulmonic valve without significant stenosis. There is no pulmonic regurgitation. Pericardium Normal pericardium without effusion. Aorta Normal ascending aorta dimension. CONCLUSIONS LV systolic function is normal with EF of 55 to 60%. Left atrium is mildly enlarged. Mild mitral regurgitation is noted. Naif Cannon MD (Electronically Signed) Final Date: 14 August 2020 10:58 S
== END 2020-08-14 06:49 | disposition home or self-care (01) ==
LOC: US 06:48
PROVIDERS: PCP Internal Medicine; Visit Provider Internal Medicine
DX: R01.1 Cardiac murmur, unspecified (principal); I34.0 Nonrheumatic mitral (valve) insufficiency
CPT/HCPCS: 93306

== ENCOUNTER 2021-01-08 07:46 | Outpatient (CLI) | payer OTHER, SELFPAY ==
--- NOTE | 2021-01-08 07:54 | MR_ITS ---
WS: [id number] MRI LEFT KNEE NONCONTRAST TECHNIQUE: Axial PD, coronal PD fat sat, coronal PD, sagittal PD, and sagittal PD fat-sat images obta ined. CLINICAL INFORMATION: LEFT KNEE INTERNAL DERANGEMENT COMPARISON: None. FINDINGS: Distal quadriceps and patella tendons are intact. Normal ACL and PCL. Prepatellar soft tissue edema. Advanced chondromalacia patella. Small amount of subchondral edema. Normal medial and lateral patella r retinaculum. Normal popliteal fossa. Small suprapatellar effusion. Chronic thinning involving the m edial lateral meniscus with chronic intrasubstance signal abnormality. No acute appearing meniscal te ars. Hypertrophic changes along the joint line. Advanced degenerative narrowing involving the medial joint compartment with ityq-gr-[id number] articulation and subchondral edema. Subchondral edema involving the medial femoral condyle and adjacent tibial pl ateau. Subchondral cystic change involving the tibial plateau. Fluid and edema along the medial colla teral ligament consistent with grade 1-2 injury. MCL and LCL appear intact. MR/MR knee LT wo con* [id number] IMPRESSION: 1. Normal ACL and PCL. 2. Mild chronic thinning of the medial and lateral meniscus. No acute appearin g meniscal tears. 3. Advanced degenerative narrowing involving the medial joint compartment with subchondral edema involving the femoral condyle and medial tibial plateau. 4. Small suprapatellar effusion. 5. Edema and fluid along the medial collateral ligament consistent with grade 1-2 injury. Lateral collateral ligament is intact. 6. Advanced chondromalacia patella with subchondral edema.
== END 2021-01-08 07:47 | disposition home or self-care (01) ==
LOC: RADSHAW 07:46
PROVIDERS: PCP Internal Medicine; Visit Provider Internal Medicine
DX: M23.92 Unspecified internal derangement of left knee (principal); M22.42 Chondromalacia patellae, left knee; R60.0 Localized edema; M25.462 Effusion, left knee
CPT/HCPCS: 73721

== ENCOUNTER 2023-01-27 07:19 | Outpatient (CLI) | payer OTHER, SELFPAY ==
--- NOTE | 2023-01-27 07:31 | MM_ITS ---
WS: [id number] BILATERAL SCREENING DIGITAL TOMOSYNTHESIS MAMMOGRAM WITH CAD HISTORY: SCREENING COMPARISON: 12/25/2018 and 11/05/2014 Bilateral CC and MLO views with tomosynthesis and synthetic mammography submitted. Computer aided det ection analyzed. Breast composition: The breasts are heterogeneously dense, which may obscure small masses. No suspici ous masses, microcalcifications or architectural distortion. MM/[place] [id number] IMPRESSION: BI-RADS: 1-Negative FOLLOW UP: 1 Year Follow-up
== END 2023-01-27 07:20 | disposition home or self-care (01) ==
LOC: RAD 07:22
PROVIDERS: PCP Internal Medicine; Visit Provider Internal Medicine
DX: Z12.31 Encounter for screening mammogram for malignant neoplasm of breast (principal)
CPT/HCPCS: 77063; 77067

== ENCOUNTER 2024-01-30 09:43 | Outpatient (CLI) | payer OTHER, SELFPAY ==
--- NOTE | 2024-01-30 09:49 | MM_ITS ---
WS: [id number] BILATERAL SCREENING DIGITAL TOMOSYNTHESIS MAMMOGRAM WITH CAD HISTORY: SCREENING COMPARISON: 01/27/2023, 12/25/2018 Bilateral CC and MLO views with tomosynthesis and synthetic mammography submitted. Computer aided det ection analyzed. Breast composition: The breasts are heterogeneously dense, which may obscure small masses. No suspici ous masses, microcalcifications or architectural distortion. Benign calcification LEFT breast. IMPRESSION: MM/[place] [id number] BI-RADS: 2-Benign FOLLOW UP: 1 Year Follow-up
== END 2024-01-30 09:44 | disposition home or self-care (01) ==
LOC: RAD 09:45
PROVIDERS: PCP Internal Medicine; Visit Provider Internal Medicine
DX: Z12.31 Encounter for screening mammogram for malignant neoplasm of breast (principal)
CPT/HCPCS: 77063; 77067

== ENCOUNTER → 2025-03-31 11:54 | Outpatient (BNVA) | payer MEDICARE, SELFPAY | PROVIDERS: PCP Family Medicine; Visit Provider Family Medicine | DX: I10 Essential (primary) hypertension (principal); E11.9 Type 2 diabetes mellitus without complications; K21.00 Gastro-esophageal reflux disease with esophagitis, without bleeding; D64.9 Anemia, unspecified; K92.1 Melena | CPT/HCPCS: 82043 ==

== ENCOUNTER → 2025-04-01 10:13 | Outpatient (BNVA) | payer MEDICARE, SELFPAY | PROVIDERS: PCP Family Medicine; Visit Provider Family Medicine | DX: I10 Essential (primary) hypertension (principal); E11.9 Type 2 diabetes mellitus without complications; K21.00 Gastro-esophageal reflux disease with esophagitis, without bleeding; D64.9 Anemia, unspecified; K92.1 Melena | CPT/HCPCS: 80053; 80061; 82607; 83036; 83540; 84443; 85025 ==

== ENCOUNTER 2025-04-12 18:59 | Emergency (ER) | payer MEDICARE, SELFPAY ==
--- NOTE | 2025-04-12 19:00 | XRR_ITS ---
PROCEDURE INFORMATION: Exam: XR Chest Exam date and time: 04/12/2025 7:17 PM Age: 64 years old Clinical indication: Pain; Chest pressure; Additional info: Cp TECHNIQUE: Imaging protocol: Radiologic exam of the chest. Views: 1 view. COMPARISON: CR XR chest 1V portable [id number] 03/22/2020 7:15 PM FINDINGS: Tubes, catheters and devices: None. Lungs: The lungs appear clear. Pleural spaces: No pleural effusion. No pneumothorax. Heart/Mediastinum: Mediastinum and sheng appear unremarkable. Vasculature: Moderate to severe atherosclerotic calcification demonstrated within the aorta. Tortuous and ectatic aorta is demonstrated. Bones/joints: No acute bony abnormality identified. XR/XR chest 1V portable [id number] IMPRESSION: No evidence for an acute cardiopulmonary process.
--- NOTE | 2025-04-12 19:00 | ECG_ITS ---
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
[2025-04-12 19:10] VITALS: BP 172/95; PULSE 75; RESP 18; O2SAT 98; BMI 26.9
[2025-04-12 19:31] LABS: Basophils % 0.6 %; Eosinophils # 0.2 10^3/uL (0.0-0.8); Eosinophils % 2.3 %; Hematocrit 34.6 % (36-47); Lymphocytes # 1.7 10^3/uL (0.8-4.8); Lymphocytes % 24.3 %; Mean Corpuscular HGB Conc 32.9 g/dL (30-55); Mean Corpuscular Hemoglobin 30.2 pg (27-33); Mean Corpuscular Volume 91.8 fl (85-98); Mean Platelet Volume 9.6 fL (7.4-10.4); Monocytes # 0.5 10^3/uL (0.2-0.9); Monocytes % 6.8 %; Neutrophils # 4.55 10^3/uL (1.8-7.7); Neutrophils % 65.7 %; Nucleated Red Blood Cells % 0 %; Platelet Count 300 10^3/cmm (157-399); Red Blood Count 3.77 10^6/uL (3.85-5.65); Red Cell Distribution Width 12.6 % (12.1-15.1); White Blood Count 6.92 10^3/uL (3.29-11.43)
[2025-04-12 19:43] LABS: INR 0.85 (0.8-1.2)
[2025-04-12 19:49] LABS: Troponin(5th) Baseline 9 ng/L (0-10)
[2025-04-12 19:52] LABS: Alanine Aminotransferase 18 U/L (0-33); Albumin Level 4.9 g/dL (3.5-5.2); Alkaline Phosphatase 63 U/L (35-105); Anion Gap 20.6 (5-19); Aspartate Amino Transferase 22 U/L (0-32); Blood Urea Nitrogen 15 mg/dL (8-23); Carbon Dioxide 25 mmol/L (22-29); Chloride 98 mmol/L (98-107); Creatinine Clr Calc Pharmacy 66.9466; Globulin 2.1 g/dL (1.3-4.6); Glomerular Filtration Rate 83.7 mL/min (90-130); Glucose 116 mg/dL (65-115); Lipase 18 U/L (13-60); Osmolality Calculated 292 mOsm/kg (285-295); Potassium 3.6 mmol/L (3.5-5.1); Sodium 140 mmol/L (136-145); Total Bilirubin 0.3 mg/dL (0.15-1.2)
--- NOTE | 2025-04-12 20:31 | W.ED.CHESTPA ---
HPI - Chest Pain General: Chief Complaint: Chest Pain Stated Complaint: Chest Pains Time Seen by Provider: 04/12/25 20:25 History of Present Illness: 64-year-old female with a history of hypertension and diabetes and hyperlipidemia who presents the emergency room with left-sided chest pain. Started this afternoon. Around noon. She had left-sided pain that went to her jaw and her back. She describes a shooting sharp pain. She also had some burning sensation. By the time of seen her pain has mostly resolved. She has a history of hypertension but her blood pressure is normally well-controlled and is a bit up today. No cough. No fevers. No nausea or vomiting. No diaphoresis. No abdominal pain. Related Data Home Medications ?Medication ?Instructions ?Recorded ?Confirmed amlodipine 5 mg tablet 5 mg PO DAILY 03/22/20 03/31/25 losartan 100 1 tab PO DAILY 03/22/20 03/31/25 mg-hydrochlorothiazide 25 mg tablet Previous Rx's ?Medication ?Instructions ?Recorded pantoprazole 40 mg tablet,delayed 40 mg PO BID #180 tabs 02/21/25 release atorvastatin 20 mg tablet (Lipitor) 20 mg PO DAILY cholesterol #90 tabs 03/31/25 clonidine HCl 0.1 mg tablet 0.1 mg PO BID PRN hypertensive 03/31/25 emergency #60 tabs labetalol 300 mg tablet 300 mg PO BID #180 tabs 03/31/25 Allergies Allergy/AdvReac Type Severity Reaction Status Date / Time No Known Allergies Allergy Verified 04/12/25 19:16 Review of Systems Narrative: Constitutional symptoms: Negative except as documented in HPI. Skin symptoms: Negative except as documented in HPI. Eye symptoms: Negative except as documented in HPI. ENMT symptoms: Negative except as documented in HPI. Respiratory symptoms: Negative except as documented in HPI. Cardiovascular symptoms: Negative except as documented in HPI. Gastrointestinal symptoms: Negative except as documented in HPI. Genitourinary symptoms: Negative except as documented in HPI. Musculoskeletal symptoms: Negative except as documented in HPI. Neurologic symptoms: Negative except as documented in HPI. Psychiatric symptoms: Negative except as documented in HPI. Endocrine symptoms: Negative except as documented in HPI. [facility] ED PFS: Medical History (Updated 04/12/25 @ 21:54 by Coco Alberto MD) Postsurgical dumping syndrome Diabetes type 2 A1C 6.8 01/10 at [facility]; pt not aware of this diagnosis but lab report in med records received Cardiac murmur, unspecified ECHO done 2019 History of GI bleed had EGD/Colonoscopy and capsule endoscopy--no source found; Abnormal stress test Done in 2008 small area of persistent decreased tracer uptake in apical inferior wall region surgical scarring versus attenuation artifact EF 76% no wall motion abnormality GERD (gastroesophageal reflux disease) Hypertension Surgical History History of banding of hemorrhoid Hx of cholecystectomy History of Tati fundoplication History of esophagogastroduodenoscopy (EGD) 08/07 Brisa Guevara Hx of total knee replacement left History of colonoscopy (~2019) 04.26.20 DR. Mo--normal History of salpingo-oophorectomy Right ovarian cyst removed--benign Family History Father Bleeding in brain due to brain aneurysm Mother Lung cancer Brother Cancer hx of Hodgkin's but of bladder cancer Other Diabetes mellitus, type 2 Denies family history of Hyperlipidemia Anesthesia complication Bleeding disorder Lung disease Hypertension Social History Smoking and tobacco/nicotine status: never used tobacco/nicotine Alcohol intake: never Substance/Drug Use: never Household members: spouse Housing: House Marital status: Number of children: 1 Highest education level completed: High School Graduate Current occupational status: retired 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 Skin: Warm, dry. Head: Normocephalic, atraumatic. Neck: Supple, trachea midline. Eye: Extraocular movements are intact. Ears, nose, mouth and throat: mucosa moist. Cardiovascular: Regular, Normal peripheral perfusion. Respiratory: Lungs are clear to auscultation, respirations are non-labored, breath sounds are equal, Symmetrical chest wall expansion. Gastrointestinal: Soft, Nontender, Non distended Musculoskeletal: Normal ROM, no deformity. Neurological: Alert and oriented, No focal neurological deficit observed. Psychiatric: Cooperative, appropriate mood & affect. Course Vital Signs: Vital signs: Vital Signs Pulse Rate 63 04/12/25 22:03 Respiratory Rate 16 04/12/25 22:03 Blood Pressure 178/87 04/12/25 22:03 Pulse Oximetry 95 04/12/25 22:03 Oxygen Delivery Me thod Room Air 04/12/25 19:10 MDM - Chest Pain Medical Decision Making Differential diagnosis for patient with chest pain includes but is not limited to and based on the above HPI, review of systems and physical exam: Pneumonia. unstable angina. angina. Acute coronary syndrome / NH. Pulmonary embolism. Costochondritis / musculoskeletal. Pleurisy. Pericarditis. Esophageal spasm. Pancreatis. Cholecystitis. Orders placed to evaluate differential diagnosis based on the above differential, HPI and physical exam EKG: Time 1907. Rate 66. Normal sinus rhythm, nonspecific ST changes. No ST elevation or significant depression., no ectopy, normal [place] & QRS intervals, This was reviewed and interpreted by myself the ER physician Chest x-ray: No acute process. No infiltrate. No pneumothorax. This was reviewed and interpreted by myself the emergency room physician. I also reviewed the radiology report. Lab Review: Laboratory results were reviewed and interpreted by myself the emergency room physician. No leukocytosis. No anemia. No renal failure. Serial cardiac markers are negative. I reviewed the patient's medical record. Reexamination: Patient remained stable. No increased work of breathing. No altered mental status. No focal motor deficits. Patient continues to be chest pain-free. Assessment and plan: Noncardiac chest pain - Discharged home - Discussed plan with patient. Answered any questions. - Evaluation and treatment of this problem were appropriate in the emergency setting. Lab Data 04/12/25 19:23 04/12/25 19:23 Radiology Impressions Chest X-Ray 04/12/25 19:00 IMPRESSION: No evidence for an acute cardiopulmonary process. Laboratory Results WBC 6.92 10^3/uL (3.29-11.43) 04/12/25 19:23 RBC 3.77 10^6/uL (3.85-5.65) L 04/12/25 19:23 Hgb 11.40 g/dL (11.27-16.99) 04/12/25 19:23 Hct 34.6 % (36-47) L 04/12/25 19:23 MCV 91.8 fl (85-98) 04/12/25 19:23 MCH 30.2 pg (27-33) 04/12/25 19:23 MCHC 32.9 g/dL (30-55) 04/12/25 19:23 RDW 12.6 % (12.1-15.1) 04/12/25 19:23 Plt Count 300 10^3/cmm (157-399) 04/12/25 19:23 MPV 9.6 fL (7.4-10.4) 04/12/25 19:23 Neut % (Auto) 65.7 % 04/12/25 19:23 Lymph % (Auto) 24.3 % 04/12/25 19:23 Schuyler % (Auto) 6.8 % 04/12/25 19:23 Eos % (Auto) 2.3 % 04/12/25 19:23 Baso % (Auto) 0.6 % 04/12/25 19:23 Neut # (Auto) 4.55 10^3/uL (1.8-7.7) 04/12/25 19:23 Lymph # (Auto) 1.7 10^3/uL (0.8-4.8) 04/12/25 19:23 Schuyler # (Auto) 0.5 10^3/uL (0.2-0.9) 04/12/25 19:23 Eos # (Auto) 0.2 10^3/uL (0.0-0.8) 04/12/25 19:23 Baso # (Auto) 0.0 10^3/uL (0.0-0.1) 04/12/25 19:23 Nucleated RBC % (auto) 0 % 04/12/25 19:23 Nucleated RBCs # 0.0 /100WBC 04/12/25 19:23 PT 12.30 SECONDS (12.1-14.9) 04/12/25 19:23 INR 0.85 (0.8-1.2) 04/12/25 19:23 Sodium 140 mmol/L (136-145) 04/12/25 19:23 Potassium 3.6 mmol/L (3.5-5.1) 04/12/25 19:23 Chloride 98 mmol/L (98-107) 04/12/25 19:23 Carbon Dioxide 25 mmol/L (22-29) 04/12/25 19:23 Anion Gap 20.6 (5-19) H 04/12/25 19:23 BUN 15 mg/dL (8-23) 04/12/25 19:23 Creatinine 0.7 mg/dL (0.5-0.9) 04/12/25 19:23 GFR Calculation 83.7 mL/min (90-130) L 04/12/25 19:23 Glucose 116 mg/dL (65-115) H 04/12/25 19:23 Calculated Osmolality 292 mOsm/kg (285-295) 04/12/25 19:23 Calcium 10.0 mg/dL (8.5-10.5) 04/12/25 19:23 Total Bilirubin 0.3 mg/dL (0.15-1.2) 04/12/25 19:23 AST 22 U/L (0-32) 04/12/25 19:23 ALT 18 U/L (0-33) 04/12/25 19:23 Alkaline Phosphatase 63 U/L (35-105) 04/12/25 19:23 Troponin T Baseline 9 ng/L (0-10) 04/12/25 19:23 Troponin T 120 Minute 7.84 ng/L (0-10) 04/12/25 21:21 Delta Troponin T -1.16 ABS# (0-10) L 04/12/25 21:21 Total Protein 7.0 g/dL (6.6-8.7) 04/12/25 19:23 Albumin 4.9 g/dL (3.5-5.2) 04/12/25 19:23 Globulin 2.1 g/dL (1.3-4.6) 04/12/25 19:23 Lipase 18 U/L (13-60) 04/12/25 19:23 All radiology interpretation(s) finalized by discharge Discharge Plan Discharge Patient Disposition: Home Clinical Impression: Non-cardiac chest pain Condition: Stable Prescriptions: No Action pantoprazole 40 mg tablet,delayed release (DR/EC) 40 mg PO BID Qty: 180 0RF atorvastatin [Lipitor] 20 mg tablet 20 mg PO DAILY Qty: 90 3RF clonidine HCl 0.1 mg tablet 0.1 mg PO BID PRN (Reason: hypertensive emergency) Qty: 60 0RF Rx Instructions: check BP and if top number >160 or bottom > 100 then take one clonidine; up to bid labetalol 300 mg tablet 300 mg PO BID Qty: 180 3RF amlodipine 5 mg Tablet 5 mg PO DAILY losartan-hydrochlorothiazide 100-25 mg Tablet 1 tab PO DAILY Discharge Orders: Discharge ED (Routine); Ordered 04/12/25 Ordered By: Coco Alberto Referrals: Alayna Zepeda MD [Primary Care Provider, Family Practice] Discharge Diet: Usual diet Discharge Activity: Increase activity as tolerated Patient Instructions: Opioid Safety, Pain Management Activity Restrictions/Additional Instructions: Thank you for choosing [facility] for your healthcare needs today. You have been screened and evaluated and felt safe for discharge. Health conditions do change or evolve sometimes and as such it is important that you follow up with your Primary Doctor to be re checked, 3-5 days is a general good time frame for follow up. You are always welcome to return to the ED for re assessment if your symptoms are worsening or you have new concerns Print Language: Ugandan Coding Level of Care Code ED Fnp for Racquel John
--- NOTE | 2025-04-12 21:28 | ECG_ITS ---
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
[2025-04-12 21:42] LABS: Troponin 5 2HR 7.84 ng/L (0-10)
[2025-04-12 21:45] LABS: Troponin 5 2HR Delta -1.16 ABS# (0-10)
[2025-04-12 22:03] VITALS: BP 178/87; PULSE 63; RESP 16; O2SAT 95
== END 2025-04-12 22:09 | disposition home or self-care (01) ==
PROVIDERS: Emergency Medicine; Emergency Provider Emergency Medicine; PCP Family Medicine
DX: R07.89 Other chest pain (principal); I10 Essential (primary) hypertension; E11.9 Type 2 diabetes mellitus without complications; E78.5 Hyperlipidemia, unspecified; Z79.899 Other long term (current) drug therapy
CPT/HCPCS: 36415; 71045; 80053; 83690; 84484; 85025; 85610; 93005; 99285

== ENCOUNTER 2025-06-29 14:41 | Outpatient (CLI) | payer MEDICARE, SELFPAY ==
--- NOTE | 2025-06-29 15:00 | XR_ITS ---
WS: [id number] DEXA (DUAL ENERGY X-RAY ABSORPTIOMETRY) Bone mineral density was performed using a Kleo machine. HISTORY: postmenopausal COMPARISON: None available. Lumbar spine BMD (L1-L4): 0.932 g/cm2 T score: -2.1 Z score: -0.6 Total hip BMD: Left: 0.657 g/cm2. T score: -2.8 Z score: -1.6 Right: 0.676 g/cm2. T score: -2.6 Z score: -1.4 10 year probability of a major osteoporotic fracture is 15.0%. XR/XR DEXA axial skeleton* [id number] IMPRESSION: OSTEOPOROSIS based upon the WHO classification for females.
== END 2025-06-29 14:42 | disposition home or self-care (01) ==
LOC: RAD 14:42
PROVIDERS: PCP Family Medicine; Visit Provider Family Medicine
DX: Z13.820 Encounter for screening for osteoporosis (principal); Z78.0 Asymptomatic menopausal state; M85.88 Other specified disorders of bone density and structure, other site
CPT/HCPCS: 77080

== ENCOUNTER → 2025-07-01 10:40 | Outpatient (BNVA) | payer MEDICARE, SELFPAY | PROVIDERS: PCP Family Medicine; Visit Provider Family Medicine | DX: I10 Essential (primary) hypertension (principal); M81.0 Age-related osteoporosis without current pathological fracture; Z11.59 Encounter for screening for other viral diseases | CPT/HCPCS: 82310; 83970; 84439; 84443; 86803 ==

== ENCOUNTER 2025-09-01 08:55 | Outpatient (CLI) | payer MEDICARE, SELFPAY ==
--- NOTE | 2025-09-01 08:58 | MM_ITS ---
WS: [id number] BILATERAL SCREENING DIGITAL TOMOSYNTHESIS MAMMOGRAM WITH CAD HISTORY: ANNUAL SCRENING COMPARISON: 01/30/2024, 01/27/2023 Bilateral CC and MLO views with tomosynthesis and synthetic mammography submitted. Computer aided detection analyzed. Breast composition: The breasts are extremely dense, which lowers the sensitivity of mammography. No suspicious masses, microcalcifications or architectural distortion. Benign calcification medial LEFT breast. MM/MM scr BI tomosynthesis [id number] IMPRESSION: BI-RADS: 2 - Benign FOLLOW UP: 1 Year Follow-up
== END 2025-09-01 08:56 | disposition home or self-care (01) ==
LOC: RAD 08:56
PROVIDERS: PCP Family Medicine; Visit Provider Family Medicine
DX: Z12.31 Encounter for screening mammogram for malignant neoplasm of breast (principal); R92.343 Mammographic extreme density, bilateral breasts; R92.1 Mammographic calcification found on diagnostic imaging of breast
CPT/HCPCS: 77063; 77067

== ENCOUNTER → 2025-10-06 10:46 | Outpatient (BNVA) | payer MEDICARE, SELFPAY | PROVIDERS: PCP Family Medicine; Visit Provider Family Medicine | DX: E11.65 Type 2 diabetes mellitus with hyperglycemia (principal); M81.0 Age-related osteoporosis without current pathological fracture | CPT/HCPCS: 82306; 82310; 83036; 83970 ==